=== PATIENT | female | born 1980 | race Caucasian/White ===

== ENCOUNTER 2018-11-03 16:39 | Outpatient (REF) | payer OTHER, SELFPAY ==
[2018-11-03 21:08] LABS: Abs Immature Grans 0.04 k/cumm (0.0-0.09); Absolute Basophil Count 0.04 k/cumm (0.0-0.2); Absolute Eosinophil Count 0.43 k/cumm (0.0-0.7); Absolute Monocyte Count 0.76 k/cumm (0.11-0.7); Basophils % 0.4; Eosinophils % 4.1; HGB 13.1 g/dL (12.0-15.5); Immature Grans % 0.4; Lymphocytes % 36.9; Mean Corp. HGB Concentration 32.8 g/dL (32.0-36.0); Mean Corpuscular Hemoglobin 29.8 pg (27.0-33.0); Mean Corpuscular Volume 91.1 fL (80-95); Mean Platelet Volume 10.1 fL (8.0-11.0); Monocytes % 7.2; Platelet Count 334 x1000/uL (130-400); RBC 4.39 m/cumm (4.00-5.20); RBC Distribution Width 13.2 % (11.7-14.6); White Blood Cell Count 10.57 k/cumm (4.4-10.8)
[2018-11-03 21:16] LABS: ALT 12 U/L (12-78); AST 20 U/L (15-37); Albumin 3.6 g/dL (3.4-5.0); Alkaline Phosphatase 113 U/L (46-116); Amylase 21 U/L (25-115); Anion Gap 8.1 mmol/L (3-11); BUN 7 mg/dL (7-18); Bilirubin, Total 0.1 mg/dL (0.2-1.0); CO2 30.9 mmol/L (21.0-32.0); CREATININE 0.89 mg/dL (0.55-1.02); Chloride 103 mmol/L (98-107); Glucose 77 mg/dL (70-100); Lipase 97 U/L (73-393); Potassium 3.9 mmol/L (3.5-5.1); Sodium 142 mmol/L (136-145); Total Protein 7.5 g/dL (6.4-8.2)
[2018-11-03 21:21] LABS: Calcium 8.7 mg/dL (8.5-10.1)
== END 2018-11-03 16:59 ==
LOC: NCHCN 16:39
PROVIDERS: PCP Family Medicine; Visit Provider Family Medicine
DX: R10.11 Right upper quadrant pain (principal)
CPT/HCPCS: 80053; 83690; 82150; 85025

== ENCOUNTER 2019-02-23 13:08 | Outpatient (REF) | payer OTHER, SELFPAY ==
[2019-02-23 20:26] LABS: Calculated LDL 166; Cholesterol 240 mg/dL (50-200); HDL Cholesterol 61 mg/dL (40-60); Triglyceride 69 mg/dL (30-150)
[2019-02-23 20:27] LABS: Hemoglobin A1C 5.9 % (4.5-6.2)
== END 2019-02-23 13:28 ==
LOC: NCHCN 13:08
PROVIDERS: PCP Family Medicine; Visit Provider Nurse Practitioner Family
DX: Z13.1 Encounter for screening for diabetes mellitus (principal); Z13.220 Encounter for screening for lipoid disorders
CPT/HCPCS: 80061; 83721; 83036

== ENCOUNTER 2019-05-09 22:48 | Outpatient (REF) | payer OTHER, SELFPAY ==
[2019-05-09 21:48] LABS: Abs Immature Grans 0.02 k/cumm (0.0-0.09); Absolute Basophil Count 0.03 k/cumm (0.0-0.2); Absolute Eosinophil Count 0.47 k/cumm (0.0-0.7); Absolute Lymphocyte Count 4.54 k/cumm (1.2-3.4); Absolute Monocyte Count 0.92 k/cumm (0.11-0.7); Absolute Neutrophil Count 4.47 k/cumm (1.2-6.7); Basophils % 0.3; Eosinophils % 4.5; HCT 39.9 % (36.0-46.0); HGB 13.2 g/dL (12.0-15.5); Immature Grans % 0.2; Lymphocytes % 43.4; Mean Corp. HGB Concentration 33.1 g/dL (32.0-36.0); Mean Corpuscular Hemoglobin 30.5 pg (27.0-33.0); Mean Corpuscular Volume 92.1 fL (80-95); Mean Platelet Volume 10.7 fL (8.0-11.0); Monocytes % 8.8; Neutrophils % 42.8; Platelet Count 339 x1000/uL (130-400); RBC 4.33 m/cumm (4.00-5.20); RBC Distribution Width 13.1 % (11.7-14.6); White Blood Cell Count 10.45 k/cumm (4.4-10.8)
[2019-05-09 21:58] LABS: ALT 12 U/L (12-78); AST 13 U/L (15-37); Albumin 3.8 g/dL (3.4-5.0); Alkaline Phosphatase 117 U/L (46-116); Anion Gap 6.3 mmol/L (3-11); BUN 12 mg/dL (7-18); Bilirubin, Total 0.2 mg/dL (0.2-1.0); CO2 31.7 mmol/L (21.0-32.0); CREATININE 0.74 mg/dL (0.55-1.02); Calcium 8.7 mg/dL (8.5-10.1); Chloride 103 mmol/L (98-107); Glucose 98 mg/dL (70-100); Potassium 4.1 mmol/L (3.5-5.1); Sodium 141 mmol/L (136-145); Total Protein 7.3 g/dL (6.4-8.2)
== END 2019-05-09 23:08 ==
LOC: NCHCN 22:48
PROVIDERS: PCP Family Medicine; Visit Provider Family Medicine
DX: R73.09 Other abnormal glucose (principal)
CPT/HCPCS: 80053; 85025

== ENCOUNTER 2019-07-24 15:33 | Outpatient (REF) | payer OTHER, SELFPAY ==
[2019-07-24 21:58] LABS: Hemoglobin A1C 5.9 % (4.5-6.2)
[2019-07-24 22:28] LABS: Vitamin D 25 Total 14.3 ng/ml (30-100)
[2019-07-24 22:30] LABS: ALT 15 U/L (14-59); AST 17 U/L (15-37); Albumin 3.8 g/dL (3.4-5.0); Alkaline Phosphatase 103 U/L (46-116); Anion Gap 9.7 mmol/L (3-11); BUN 9 mg/dL (7-18); Bilirubin, Total 0.3 mg/dL (0.2-1.0); CO2 28.3 mmol/L (21.0-32.0); CREATININE 0.79 mg/dL (0.55-1.02); Calcium 8.9 mg/dL (8.5-10.1); Chloride 103 mmol/L (98-107); Glucose 117 mg/dL (70-100); Potassium 4.1 mmol/L (3.5-5.1); Sodium 141 mmol/L (136-145); TSH (W/Ref FT4) 0.68 uIU/mL (0.36-3.74); Total Protein 7.2 g/dL (6.4-8.2)
== END 2019-07-24 15:53 ==
LOC: NCHCN 15:33
PROVIDERS: PCP Family Medicine; Visit Provider Family Medicine
DX: R73.03 Prediabetes (principal); R53.83 Other fatigue; J03.91 Acute recurrent tonsillitis, unspecified; E66.9 Obesity, unspecified
CPT/HCPCS: 80053; 82306; 83036; 84443

== ENCOUNTER 2019-09-26 22:15 | Outpatient (REF) | payer OTHER, SELFPAY ==
[2019-09-27 05:26] LABS: Vitamin D 25 Total 28.4 ng/ml (30-100)
== END 2019-09-26 22:35 ==
LOC: NCHCN 22:15
PROVIDERS: PCP Family Medicine; Visit Provider Family Medicine
DX: E55.9 Vitamin D deficiency, unspecified (principal)
CPT/HCPCS: 82306

== ENCOUNTER 2020-03-14 10:15 | Outpatient (CLI) | payer OTHER, SELFPAY ==
--- NOTE | 2020-03-14 09:38 | DI.RAD_ITS ---
EXAM: XR WRIST LT COMPLETE CLINICAL HISTORY: LT WRIST PAIN, INJURY, M25.532 TECHNIQUE: COMPARISON: No exams were available for comparison FINDINGS: Three views were obtained. No fracture seen. Bony alignment is within normal limits. IMPRESSION:
== END 2020-03-14 10:35 ==
PROVIDERS: PCP Family Medicine; Visit Provider Physician Assistant
DX: M25.532 Pain in left wrist (principal)
CPT/HCPCS: 73110

== ENCOUNTER 2020-04-18 07:33 | Outpatient (CLI) | payer OTHER, SELFPAY ==
[2020-04-20 00:15] LABS: COVID-19 RT-PCR Result NEGATIVE (Negative)
== END 2020-04-18 07:53 ==
PROVIDERS: PCP Family Medicine; Visit Provider Orthopaedic Surgery
DX: G56.21 Lesion of ulnar nerve, right upper limb (principal)
CPT/HCPCS: U0003

== ENCOUNTER 2020-04-21 09:34 | Day surgery (SDC) | payer OTHER, SELFPAY ==
[2020-04-21] VITALS (7 sets, daily range): BP systolic 101–116; BP diastolic 60–75; PULSE 73–89; RESP 16–23; TEMP 36.3–36.8; O2SAT 94–98
[2020-04-21] MEDS: Lactated Ringers 1,000 ML 80 ML IV (10:11)
[2020-04-21] MEDS: ceFAZolin 2 GM/50 ML BAG IVPB (11:25)
--- NOTE | 2020-04-21 12:38 | PDOC.DSDIS_ITS ---
Discharge Plan Disposition Patient Disposition: HOME Condition: Good Discharge Details Reason For Visit: ANTERIOR TRANSPOSITION R ULNAR NERVE Attending Provider: Hong Ramirez Primary Care Provider: Sabine Campbell Home Meds and New Rx's Prescriptions: New ibuprofen 600 mg tablet 600 mg PO TID Qty: 30 RF: 0 hydrocodone-acetaminophen 5-325 mg tablet 1 tab PO Q6H PRN (Reason: pain) Qty: 10 RF: 0 Continued Nexplanon 68 mg implant 1 implant SBD ONCE RF: 0 cholecalciferol (vitamin D3) 25 mcg (1,000 unit) capsule 25 mcg PO DAILY RF: 0 omeprazole 20 mg capsule,delayed release(DR/EC) 20 mg PO DAILY RF: 0 methylphenidate HCl [Concerta] 18 mg tablet extended release 24hr 18 mg PO DAILY RF: 0 buprenorphine-naloxone [Suboxone] 12-3 mg film 1 film BC Q24H RF: 0 albuterol sulfate [ProAir HFA] 90 mcg/actuation HFA aerosol inhaler 2 puff IH Q6H PRNRF: 0 sumatriptan succinate 100 mg tablet 100 mg PO PRN PRNRF: 0 citalopram 40 mg tablet 40 mg PO DAILY RF: 0 nicotine (polacrilex) [Nicorette] 4 mg gum 4 mg BC Q2H RF: 0 valacyclovir [Valtrex] 500 mg tablet 500 mg PO BID PRNRF: 0 Discharge Instructions Additional Instructions: Sling for comfort. May take R arm out of sling and move elbow as much and for as long as your discomfort allows. May discontinue sling when you feel you no longer need it for pain. Apply ice bag to inside of R elbow 4 times/day for 1 hour each time for next 3 days. Keep dressings dry and in place until return in one week. Follow up with in one week for dressing change. Take ibuprofen 3 times/day as prescribed to decrease inflammation and pain. Take hydrocodone for breakthru pain, if needed. Referrals: Hong Ramirez MD [ [facility] STAFF PHYSICIAN] - (f/u in one week) Equipment/Supplies: Sling Activity:: Activity as Tolerated Remove Dressings/Wound Care:: Do Not Remove Shower/Bathe:: Cover Diet:: As Tolerated Discharge Orders Discharge Orders: Discharge Order (Routine); Ordered 04/21/20 Ordered By: Hong Ramirez
--- NOTE | 2020-04-21 17:19 | ROE_ITS ---
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 Her symptoms are exacerbated by repetitive grasping activities with her right hand. Also awakens her at night interfering with sleep. She is a right dominant individual. Nerve conduction studies performed in March demonstrated moderate slowing of the ulnar nerve conduction across the elbow. Because of the demonstrable weakness in her right hand and some intrinsic muscle atrophy, I felt that she would most benefit from an anterior transposition of the ulnar nerve. I do not think that just cubital tunnel release will be enough to alleviate her symptoms. Risk and complication procedure explained patient detail preop. Procedure Description: Patient was taken the operating room on 04/21/2020 where she was placed supine operative table and a general anesthetic was administered. Proximal tourniquet was applied to the right upper arm and then the right e xtremity was prepped from fingers to turn again and draped free in usual sterile fashion. A long curved incision was made in line with the course the ulnar nerve. Incision began about 3 inches distal to the lateral condyle and extended about 6 inches proximal to the lateral condyle. Incision was made under tourniquet control. Subtenon's veins were cauterized. Fascia was incised just posterior to the lateral condyle and the ulnar nerve was identified. Dissection was then carried proximally freeing the ulnar nerve from overlying fascia. The nerve was then traced proximally to where it came to the intermuscular septum and into mild muscular septum was released at this point completely decompressing the nerve. Vessel loop was placed around the nerve and the vessel loop was then use as traction to aid in the dissection. The ulnar nerve was then decompressed by incising the fascia of the cubital tunnel and a fascia in the forearm muscle. The nerve was freed until the for significant motor branch distal to the elbow was identified. This was the limit of the mobilization. At this point the nerve was really quite loose with no tension on it at all. During the dissection it was noted that as the nerve and to the cubital tunnel it was somewhat flattened and there was some bluish discoloration when compared to the appearance of the nerve proximal to the lateral epicondyle. The discoloration was relieved that that her nerve was decompressed. The nerve was then irrigated with saline solution. The attachment intermuscular septum to the lateral condyle was released so there would be no tethering on the nerve. A fascial flap was then developed starting from the lateral condyle extending medially, approximately 8 inch to an inch and a half. This fascial flap was sutured to the subdermal skin with a couple of interrupted 3-0 Vicryl sutures after transposing the nerve anteriorly. I then checked to make sure that the nerve moved freely in the sling and was not tethered at all with flexion extension of the elbow. The wound was then irrigated again with saline solution. The wound margins were infiltrated with 0.5% Marcaine with epinephrine solution. A ulnar nerve block was performed with 0.5% Marcaine with epinephrine solution. The subcu was approximated interrupted 2-0 Vicryl sutures. Skin edges were approximated with skin carlos. Wounds dressed with Xeroform gauze, sterile gauze 4 x 4's ABD pads and wrapped with a 4 inch Kerlix bandage. I then wrapped the elbow with a 4 inch Moiz bandage. Right arm was placed in a sling. Her general anesthesia was reversed without complications. Tourniquet was released without any breakthrough bleeding of the dressings. Patient was discharged to recovery room in good condition. Patient was discharged home from day surgery unit when fully recovered from her general anesthesia. She is given instructions to use a sling for comfort. She may take her right arm out of the sling and flex and extend her elbow as often and for as much as discomfort allows. She may discontinue the sling completely when she does not feel she needs anymore. She should keep her dressings dry and intact until she follows up with Dr. Ramirez in 1 week. She may use her right arm as much as discomfort allows. She will take Tylenol or ibuprofen for mild pain. She is given a prescription for breakthrough pain of hydrocodone with APAP 01/19/2025 1 tab every 6 hours, PRN.
== END 2020-04-21 14:30 | disposition home or self-care (01) ==
PROVIDERS: PCP Family Medicine; Visit Provider Orthopaedic Surgery
PROC: (CPT 64718; principal; 2020-04-21 11:45)
DX: G56.21 Lesion of ulnar nerve, right upper limb (principal)
CPT/HCPCS: 64718; 81025; J0131; J0690; J1100; J1885; L3650

== ENCOUNTER 2020-07-28 14:36 | Outpatient (REF) | payer SELFPAY ==
[2020-08-02 22:11] LABS: Patient Race White; SARS-CoV-2 RNA Undetected (Undetected); SARS-CoV-2 Specimen Source Nasal
== END 2020-07-28 14:56 ==
LOC: NCHCN 14:36
PROVIDERS: PCP Family Medicine; Visit Provider Nurse Practitioner Family
DX: Z20.828 Contact with and (suspected) exposure to other viral communicable diseases (principal)
CPT/HCPCS: U0003

== ENCOUNTER 2020-08-25 20:23 | Outpatient (REF) | payer OTHER, SELFPAY ==
[2020-08-29 18:56] LABS: COVID-19 RT-PCR Result NEGATIVE (Negative)
== END 2020-08-25 20:43 ==
LOC: NCHCN 20:23
PROVIDERS: PCP Family Medicine; Visit Provider Nurse Practitioner Family
DX: Z11.59 Encounter for screening for other viral diseases (principal)
CPT/HCPCS: U0003

== ENCOUNTER 2021-07-29 15:25 | Outpatient (REF) | payer OTHER, SELFPAY ==
--- OUTSIDE RECORDS SUMMARY | 2021-07-29 15:30 | XMS_ITS ---
:1980 Author Care Team Providers Name Role Phone ROSIO POON MD Primary Care Provider [phone] JOSÉ MIGUEL LANDON MD Valet Parker [phone] Allergies Code Code System Name Reaction Severity Status Onset Effexor ? ? Active ? Medications Name Status Start Date Stop Date ? ? buspirone 5 mg tablet Completed ? 07/25/2019 Take 2 tablets 3 times a day by oral route. citalopram 40 mg tablet Active ? Not avai lable Take 1 tablet every day by oral route in the morning. Concerta 18 mg tablet,extended release Active ? Not available Take 1 tablet every day by oral route in the morning. omeprazole 20 mg capsule,delayed release Active ? Not available Take 1 capsule every day by oral route in the morning. ProAir HFA 90 mcg/actuation aerosol inhaler Active ? Not available Inhale 2 puffs every 4 hours by inhalation route as needed. Suboxone 12 mg-3 mg sublingual film Active ? Not available Place 1 film every day by sublingual route. sumatriptan 100 mg tablet Active ? Not av ailable Take 1 tablet by oral route as needed. Valtrex 500 mg tablet Active ? Not availa ble Take 1 tablet twice a day by oral route. Vitamin D2 1,250 mcg (50,000 unit) capsule Active ? Not available Take 1 capsule every week by oral route. Problems Name Status Onset Date Source ? Herpes Zoster Active ? ? Anxiety Active ? ? Opioid Abuse Active ? ? Posttraumatic Stress Disorder Active ? ? Depressive Disorder Active ? ? Attention Deficit Hyperactivity Disorder Active ? ? Gastroesophageal Reflux Disease Active ? ? Biliary Colic Active ? ? Dysmenorrhea Active ? ? Right Upper Quadrant Pain Active ? ? Recurrent Acute Tonsillitis Active ? ? Procedures Date Name Performed by ? ? [place] Teeth Extraction Information not available ? Appendectomy Information not avai lable ? Carpal Tunnel Surgery Information not av ailable Notes: bilateral, done at [facility] Results Lab Results Date Name Specimen Result Interpretation Description Value Range Status Address ? 08/02/2019 Pathology TISS - Report (see ? Final No rth Country Study below) [facility] ab (Internal) : [address] Past Encounters None recorded. Social History None recorded. Vaccine List None recorded. Plan of Care Reminders Provider Appointments None ? ? recorded. Lab None ? ? recorded. Referral None ? ? recorded. Procedures None ? ? recorded. Surgeries None ? ? recorded. Imaging None ? ? recorded. Vitals None recorded.
--- OUTSIDE RECORDS SUMMARY | 2021-07-29 15:30 | XMS_ITS | CCD ---
:1980 Author Care Team Providers Name Role Phone TATEL Attending Physician Unavailable Vital Signs Unknown or Not Available. Allergies Allergy Code Allergy Type Reaction Status No Known Drug Allergies 0 No known drug allergies Active Procedures Unknown or Not Available. History of Immunizations Unknown or Not Available. Problems Problem Code Start Date Resolved Date Status ACUTE APPENDICITIS 5409 Active Opioid type dependence, [id number] Acti ve continuous use Results Unknown or Not Available. Active Medications Medication Code Dose Units Frequency Route Modification Start Date/Time Citalopram 948108 40 MILLIGRAMS DAILY ORAL 05/10/2019 Hydrobromide 16:46 40MG Oral Tablet Prescription Detail TAKE 40 MILLIGRAMS ORAL ABRAHAM Y Omeprazole 20MG 635309 20 MILLIGRAMS DAILY ORAL 05/10 Oral Capsule, 16:46 Delayed Release Prescription Detail TAKE 20 MILLIGRAMS ORAL ABRAHAM Y SUBOXONE 0 12 MILLIGRAMS DAILY ORAL 05/10/2019 12MG-3MG 16:46 SUBLINGUAL FILM Prescription Detail TAKE 12 MILLIGRAMS ORAL ABRAHAM Y VIVITROL 380 0 1 MONTHLY INTRAMUSCULAR 05/10 MG VIAL 16:46 Prescription Detail INJECT 1 INTRAMUSCULAR MAGED HLY Medications Administered During Visit Unknown or Not Available. Encounters Encounter Diagnosis Diagnosis Code Start Date Post-traumatic headache, unspecified, not K20662 04/07/2021 intractable Social History Smoking Status Code Start Date End Date Current every day smoker [id number] 09/19/1996 Patient Decision Aids Unknown or Not Available. Discharge Instructions You were admitted to [facility] on 04/07/2021 13:34 with a principal diagnosis of Post-traumatic headache, un specified, not intractable You were discharged from [facility] on 04/07/2021 13:34 Should you have any questions prior to d ischarge, please contact a member of your healthcare team. If you have left the ho spital and have any questions, please contact your primary care physician. Chief Complaint and Reason For Visit Unknown or Not Available. Function Status Unknown or Not Available. Plan of Care Unknown or Not Available. Referral/Transition of Care Unknown or Not Available.
[2021-07-30 07:13] LABS: ALT 16 U/L (14-59); AST 23 U/L (15-37); Albumin 4.2 g/dL (3.4-5.0); Alkaline Phosphatase 93 U/L (46-116); Bilirubin, Direct 0.1 mg/dL (0.0-0.2); Bilirubin, Total 0.3 mg/dL (0.2-1.0); Total Protein 7.6 g/dL (6.4-8.2)
== END 2021-07-29 15:26 | disposition home or self-care (01) ==
LOC: NCHCN 15:25
PROVIDERS: PCP Family Medicine; Visit Provider Family Medicine
DX: Z86.59 Personal history of other mental and behavioral disorders (principal)
CPT/HCPCS: 80076

== ENCOUNTER 2021-10-13 17:42 | Outpatient (REF) | payer OTHER, SELFPAY ==
[2021-10-14 23:23] LABS: COVID-19 RT-PCR UVMMC Result Negative (Negative)
== END 2021-10-13 17:43 | disposition home or self-care (01) ==
LOC: NCHCN 17:42
PROVIDERS: PCP Family Medicine; Visit Provider Nurse Practitioner Family
DX: Z20.822 Contact with and (suspected) exposure to COVID-19 (principal); J06.9 Acute upper respiratory infection, unspecified
CPT/HCPCS: U0003

== ENCOUNTER 2022-01-12 20:50 | Outpatient (REF) | payer OTHER, SELFPAY ==
[2022-01-12 21:11] LABS: ALT 14 U/L (14-59); AST 21 U/L (15-37); Albumin 4.4 g/dL (3.4-5.0); Alkaline Phosphatase 96 U/L (46-116); Anion Gap 6.3 mmol/L (3-11); BUN 11 mg/dL (7-18); Bilirubin, Total 0.4 mg/dL (0.2-1.0); CO2 29.7 mmol/L (21.0-32.0); CREATININE 0.7 mg/dL (0.55-1.02); Calcium 9.1 mg/dL (8.5-10.1); Calculated LDL 144 mg/dL (<100); Chloride 103 mmol/L (98-107); Cholesterol 220 mg/dL (<200); Glucose 136 mg/dL (74-106); HDL Cholesterol 70 mg/dL (40-60); Potassium 4.6 mmol/L (3.5-5.1); Sodium 139 mmol/L (136-145); Total Protein 7.6 g/dL (6.4-8.2); Triglyceride 32 mg/dL (<150)
[2022-01-12 21:12] LABS: Hemoglobin A1C 5.8 % (<5.7)
== END 2022-01-12 20:51 | disposition home or self-care (01) ==
LOC: NCHCN 20:50
PROVIDERS: PCP Family Medicine; Visit Provider Family Medicine
DX: Z00.00 Encounter for general adult medical examination without abnormal findings (principal); R73.03 Prediabetes; F11.11 Opioid abuse, in remission; Z63.9 Problem related to primary support group, unspecified; Z86.59 Personal history of other mental and behavioral disorders; Z13.220 Encounter for screening for lipoid disorders
CPT/HCPCS: 80053; 80061; 83036

== ENCOUNTER 2022-07-01 15:35 | Outpatient (REF) | payer OTHER, SELFPAY ==
[2022-07-01 14:58] LABS: TSH (W/Ref FT4) 0.67 uIU/mL (0.36-3.74)
--- OUTSIDE RECORDS SUMMARY | 2022-07-01 15:38 | XMS_ITS | Encounter Summary ---
:1980 Author Organization [facility] Address [address] [place] [address] Care Team Providers Name Role Phone Sabine Poon MD Primary Care Provider Encounter Details Date Type Department Care Team Description 12/22/2017 Results Only [facility]- [facility] Sabine Poon MD [phone] [address] [place], [place] [address] (Wo rk) Social History Tobacco Use Types Packs/Day Years Used Date Never Assessed Sex Assigned at Date Recorded Not on file documented as of this encounter Plan of Treatment Not on filedocumented as of this encounter Procedures Procedure Name Priority Date/Time Associated Diagnosis Comme nts PAP TEST- RESULT Routine 12/22/2017 0:00 EDT Resu lts for this ONLY procedure are i n the results section. documented in this encounter Results PAP TEST- RESULT ONLY (12/22/2017 0:00 EDT) Pathology Report: CYTOPATHOLOGY REPORT [facility] Reports generated via electronic interface contain joshua ginal data; SERVICES however they are lacking the format of the original re port. Caution should be taken when reading/interpreting unfo rmatted reports. Name: ? ANDREA PORTER ? Accession #: ? [id number] ? : ? 1980 (Age: [age]) ??F ?Collect Date: ? 2017 ? Location: ? [facility] ? Receive Date: ? 8 ? Provider: SABINE POON MD Copy to: ? Final Report SPECIMEN ADEQUACY ? Satisfactory for Evaluation - transformation zone component absent GENERAL CATEGORIZATION ? Negative for Intraepithelial Lesion or Malignan cy ?? Last Menstrual Period: 08/2016 Treatment History: LEEP: Early 20's Specimen/Source: ??Pap Test, Cervix, ThinPrep Imaging System with manual evaluation Document reviewed and electronically signed by: ? Francisco Javier Herring, ASHER(ASCP) ? Report ??Date: 01/02/2018 09:18 HPV with Pap Test ? Date Ordered: ? 12/30/2017 ? Status: ?? Signed Out ?Date Complete: ? 01/04/2018 ? By: ??Sy stem Interface ? Date Reported: ? 01/04/2018 ? Interpretation RESULT: Negative for HPV. No E6 or E7 mRNA is detected from HPV types 16,18,31,3 3,35, 39,45,51,52,56,58,59,66, and 68 by digital media designer media tunde amplification. Comments Document reviewed and electronically signed by: ? System Interface ? Report date: 01/04/2018 By the signature above, the attending physician certif ies that he/she has personally conducted a gross and/or microscopic examin ation of the described specimens and rendered or confirmed the above diagnosi s. End of Report Specimen Performing Organization Address City/State/ZIP Code Phon e Number [facility] [address] [place] [address] SERVICES documented in this encounter Visit Diagnoses Not on filedocumented in this encounter Care Teams Property Claims Manager Relationship Specialty Start Date End Date Sabine Poon MD PCP - General 09/24/09 [address] [place] [address] documented as of this encounter
--- OUTSIDE RECORDS SUMMARY | 2022-07-01 15:38 | XMS_ITS | Encounter Summary ---
:1980 Author Organization [facility] Address [address] [place] [address] Care Team Providers Name Role Phone Sabine Campbell MD Primary Care Provider Encounter Details Date Type Department Care Team Description 09/03/2004 Results Only [facility] - [place], Provider, conversion [address] [place] [address] [place] [address] Social History Tobacco Use Types Packs/Day Years Used Date Never Assessed Sex Assigned at Date Recorded Not on file documented as of this encounter Plan of Treatment Not on filedocumented as of this encounter Procedures Procedure Name Priority Date/Time Associated Comments Diagnosis N. GONORRHOEAE Routine 09/03/2004 18:46 Results f or this AMPLIFIED PROBE EST procedure ar e in the results section. ZZCHLAMYDIA Routine 09/03/2004 18:46 Results for this TRACHOMATIS AMPLIFIED EST proced ure are in PROBE the results section. CYTOPATHOLOGY Routine 09/03/2004 0:00 Results for this EST procedure are i n the results section. documented in this encounter Results N. GONORRHOEAE AMPLIFIED PROBE (09/03/2004 18:46 EST) Result No Neisseria [facility] gonorrhoeae DNA LAB detected by crm administrator mediated amplification. Report Status Final [facility] [id number] LAB Specimen Vagina [facility] Description LAB Specimen Performing Organization Address City/State/ZIP Code Phon e Number [facility] [address] [place] [address] SERVICES [facility] [address] [place] [address] CHLAMYDIA TRACHOMATIS AMPLIFIED PROBE (09/03/2004 18:46 EST) Specimen Vagina [facility] Description LAB Result No Chlamydia [facility] trachomatis DNA LAB detected by crm administrator mediated amplification. Report Status Final [facility] [id number] LAB Specimen Performing Organization Address City/State/ZIP Code Phon e Number [facility] [address] [place] [address] SERVICES [facility] [address] [place] [address] CYTOPATHOLOGY (09/03/2004 0:00 EST) Pathology Report: CYTOPATHOLOGY REPORT [facility] Reports generated via electronic interface contain joshua ginal data; however they are lacking the format of the original re port. Caution should be taken when reading/interpreting unfo rmatted reports. Name: ? PORTER, ANDREA ? Accession #: ? [id number] : ? 1980 (Age: 24) ??F ?Collect Date: ? 08/19 Location: ? [facility] ? Receive Date : ? 09/07/2004 Provider: ?DIAN BLISS MD Copy to: ? Specimen/Source: ?ThinPrep Pap Test, Cervix/ Endocervix Last Menstrual Period: ? 08/07/04 Other: ? HPVA - HPV testing requested if ASC-US on the current ThinPrep Pap test. ? SPECIMEN ADEQUACY ? Satisfactory for Evaluation - transformation zone component absent GENERAL CATEGORIZATION ? Negative for Intraepithelial Lesion or Malignan cy INTERPRETATION ? Shift in [place] present suggestive of bacterial vaginosis. ? Document reviewed and electronically signed by: ? ASHER Linares(ASCP) ? Report Date: ??09/15/2004 10:19 End of Report Specimen Performing Organization Address City/State/ZIP Code Phon e Number [facility] [address] [place] [address] SERVICES [facility] [address] [place] [address] documented in this encounter Visit Diagnoses Not on filedocumented in this encounter Care Teams Sash Clamp Operator Relationship Specialty Start Date End Date Sabine Campbell MD PCP - General 09/24/09 [address] [place], [place] [address] documented as of this encounter
--- OUTSIDE RECORDS SUMMARY | 2022-07-01 15:38 | XMS_ITS | Encounter Summary ---
:1980 Author Organization [facility] Address [address] [place] [address] Care Team Providers Name Role Phone Sabine Campbell MD Primary Care Provider Encounter Details Date Type Department Care Team Description 09/02/2020 Lab Requisition [facility] Outr Resulting Lab, Pathology & Laboratory Provider [facility] [address] [place], [place] [address] Social History Tobacco Use Types Packs/Day Years Used Date Never Assessed Sex Assigned at Date Recorded Not on file documented as of this encounter Plan of Treatment Not on filedocumented as of this encounter Procedures Procedure Name Priority Date/Time Associated Diagnosis Comme nts COVID-19 TEST [facility] Today 09/01/2020 15:30 LAB PCR EST COVID-19 TESTING Routine 09/01/2020 15:30 Results for this EST procedure are i n the results section. documented in this encounter Results COVID-19 TEST [facility] LAB PCR (09/01/2020 15:30 EST) Specimen Swab - Entire nasopharynx (body structur e) Performing Organization Address City/State/ZIP Code Phon e Number [facility] [address] [place] [address] SERVICES COVID-19 TESTING (09/01/2020 15:30 EST) COVID-19 rt-PCR Negative Negative [facility] Result Comment: [facility] This test has not been FDA c leared or approved. This test has been authorized by FDA under an EUA for use by authorized laboratories. This test has been authorized only for detection of nucleic acid fro SERVICES m 2018-nCo, not for any oth er viruses or pathogens. This test is only authorized for the duration of the declaration that circumstances exist justifying the authorization of emergency use of in vitro d iagnostic tests for detectio n and/or diagnosis of 2019-nCoV under section 564(b)(1) of Act, 21 U.S.C ?? 360bbb-3(b) (1), unless the authorization is terminated or revoked sooner. Negative results do not prec lude 2019-nCoV infection and should not be used as the sole basis for treatment or other patient management decisions. Negative results must be combined with clinical observa tions, patient history, and epidemiological informatio n. Performed on the Celframeher Fusion instrument Performing Lab [facility] Lab [facility] SERVICES Specimen Swab Performing Organization Address City/State/ZIP Code Phon e Number [facility] [address] [place] [address] SERVICES documented in this encounter Visit Diagnoses Not on filedocumented in this encounter Care Teams Horser Up Relationship Specialty Start Date End Date Sabine Campbell MD PCP - General 09/24/[address] [place] [address] documented as of this encounter
--- OUTSIDE RECORDS SUMMARY | 2022-07-01 15:38 | XMS_ITS | Encounter Summary ---
:1980 Author Organization [facility] Address [address] [place] [address] Care Team Providers Name Role Phone Sabine Campbell MD Primary Care Provider Encounter Details Date Type Department Care Team Description 12/23/2010 Results Only [facility] Sabine Campbell MD Laboratory Services - [address] [address] [address] [facility] [place] [address] [phone] Social History Tobacco Use Types Packs/Day Years Used Date Never Assessed Sex Assigned at Date Recorded Not on file documented as of this encounter Plan of Treatment Not on filedocumented as of this encounter Procedures Procedure Name Priority Date/Time Associated Diagnosis Comme nts CYTOPATHOLOGY Routine 12/23/2010 0:00 EDT Results for this procedure are i n the results section . documented in this encounter Results CYTOPATHOLOGY (12/23/2010 0:00 EDT) Pathology Report: CYTOPATHOLOGY REPORT ? STOUT ALL EN ? LAB Reports generated via electr onic interface contain original data; ? however they are lacking the format of the original report. ? Caution should be taken when reading/interpreting unformatted reports. ? Name: ? ANDREA PORTER ? Accession #: ? [id number] ? : ? 1980 (Age: 30) ??F ?Collect Date: ? 12/23/2010 ? Location: ? [facility] ? Receive Date: ? 12/25/2010 ? Provider: ?SABINE MORG AN MD ? Copy to: ? Specimen/Source: ? Pap Test, Cervix, ThinPrep Imaging System with manual ?? evaluation ? Last Menstrual Period: ? 03/12/11 ? Treatment History: ? LEEP ? SPECIMEN ADEQUACY ? Satisfactory for Eval uation ? - transformation zone compon ent present ? GENERAL CATEGORIZATION ? Negative for Intraepi thelial Lesion or Malignancy ? INTERPRETATION ? Shift in [place] presen t suggestive of bacterial vaginosis. ? Document reviewed and electr onically signed by: ? Tyson Luis, [place] (ASCP) ? Report Date: ??04/13/ 2011 13:58 ? End of Report ? Specimen Performing Organization Address City/[facility]/ZIP Code Phon e Number [facility] [address] [place] [address] SERVICES [facility] [address] [place] [address] documented in this encounter Visit Diagnoses Not on filedocumented in this encounter Care Teams Cementer Hand Relationship Specialty Start Date End Date Sabine Campbell MD PCP - General 09/24/09 [address] [place] [address] documented as of this encounter
--- OUTSIDE RECORDS SUMMARY | 2022-07-01 15:38 | XMS_ITS | Encounter Summary ---
:1980 Author Organization [facility] Address [address] [place] [address] Care Team Providers Name Role Phone Sabine Campbell MD Primary Care Provider Encounter Details Date Type Department Care Team Description 01/21/2004 Results Only [facility] - Tiffanie [place], Provider, conversion [address] [place] [address] [place] [address] Social History Tobacco Use Types Packs/Day Years Used Date Never Assessed Sex Assigned at Date Recorded Not on file documented as of this encounter Plan of Treatment Not on filedocumented as of this encounter Procedures Procedure Name Priority Date/Time Associated Comments Diagnosis N. GONORRHOEAE Routine 01/21/2004 13:41 Results f or this AMPLIFIED PROBE EDT procedure ar e in the results section. ZZCHLAMYDIA Routine 01/21/2004 13:41 Results for this TRACHOMATIS AMPLIFIED EDT proced ure are in PROBE the results section. documented in this encounter Results N. GONORRHOEAE AMPLIFIED PROBE (01/21/2004 13:41 EDT) Result No Neisseria [facility] gonorrhoeae DNA LAB detected by rn critical care mediated amplification. Report Status Final [facility] [id number] LAB Specimen Cervix [facility] Description LAB Specimen Performing Organization Address City/State/ZIP Code Phon e Number [facility] [address] [place] [address] SERVICES [facility] [address] [place] [address] CHLAMYDIA TRACHOMATIS AMPLIFIED PROBE (01/21/2004 13:41 EDT) Specimen Cervix [facility] Description LAB Result No Chlamydia [facility] trachomatis DNA LAB detected by rn critical care mediated amplification. Report Status Final [facility] [id number] LAB Specimen Performing Organization Address City/State/ZIP Code Phon e Number [facility] [address] [place] [address] SERVICES [facility] [address] [place] [address] documented in this encounter Visit Diagnoses Not on filedocumented in this encounter Care Teams Visual Merchandising Associate Relationship Specialty Start Date End Date Sabine Campbell MD PCP - General 09/24/09 [address] [place] [address] documented as of this encounter
--- OUTSIDE RECORDS SUMMARY | 2022-07-01 15:38 | XMS_ITS | Encounter Summary ---
:1980 Author Organization [facility] Address [address] [place] [address] Care Team Providers Name Role Phone Sabine Campbell MD Primary Care Provider Encounter Details Date Type Department Care Team Description 03/05/2020 Lab Requisition [facility] Outr Resulting Lab, Pathology & Laboratory Provider [facility] [address], [place] [id number] Social History Tobacco Use Types Packs/Day Years Used Date Never Assessed Sex Assigned at Date Recorded Not on file documented as of this encounter Plan of Treatment Not on filedocumented as of this encounter Procedures Procedure Name Priority Date/Time Associated Comments Diagnosis DO NOT ORDER Today 03/05/2020 8:15 EDT Results for this STANDALONE - BROAD procedure are in COVID TEST the results section. COVID-19 TESTING Routine 03/05/2020 8:15 EDT Resu lts for this procedure are i n the results section. documented in this encounter Results DO NOT ORDER STANDALONE - BROAD COVID TEST (03/05/2020 8:15 EDT) COVID-19 rt-PCR NEGATIVE Negative [facility] Result Comment: LABORATORY 2019-novel Coronavirus (2019 -nCoV) not detected by the qRT-PCR assay. Consider testing for other respiratory viruses or re-collecting for 2019-nCoV testing. Note: Optimum timing for peak viral levels du ring infections caused by 20 -nCoV have not been determined. Collection of multiple specimens from the same patient may be necessary to detect the virus. Limitations Positive results are indicat stu of active infection with SARS-CoV-2 but do not rule out bacterial infection or co-infection with other viruses. The agent detected may not be the definite cause of diseas e. In addition, detection of viral RNA may not indicate the presence of infectious virus or that SARS-CoV-2 is the causative agent for clinical symptoms. Negative results do not prec lude SARS-CoV-2 infection and should not be used as the sole basis for patient management decisions. Negative results must be combined with clinical observations, patient his tory, and epidemiological in formation. False negative results may also occur if amplification inhibitors are present in the specimen or if inadequate numbers of organisms are present in the specimen. Op timum specimen types and jayda ing for peak viral levels during infections caused by SARS-CoV-2 have not been fully determined. Collection of multiple specimens (types and time points) from the same patient may be necessary to detect the virus. The test was validated for u se with upper respiratory specimens obtained via nasopharyngeal or oropharyngeal swabs in VTM, UTM, M4, M5, M6, saline, and MTM media. The performance of this test has not be en established for other spe cimens. Specimens collected using other FDA recommended Specimen Collection Materials listed in the FDA COVID-19 [employer] communication (December 13, 2019) are pr ocessed with the caveat that they were not all validated for use with this test and the result must be interpreted in this context. Furthermore, a false negative results may occur if a specimen is improperly collected, transported or handled. If the virus mutates in the RT-PCR target region, SARS-CoV-2 may not be detected or may be detected less predictably. Inhibitors or other types of interference may produce a false negative result. An interference study evaluating the effect of common cold medications was not performed. This test is not FDA-cleared but its performance characteristics were established by our CLIA-certified, CAP-accredited, high complexity laboratory in accordance with CLIA regulations, [employer] of [place] an Pathologists (CAP) guidel donna (Dec 06, 2019), and FDA guidance (Nov 17, 2019). This test is only for use un bailey the Food and Drug Administration's Emergency Use Authorization. Specimen Swab - Entire nasopharynx (body structur e) Performing Organization Address City/State/ZIP Code Phon e Number [facility] [place] [place] COVID-19 TESTING (03/05/2020 8:15 EDT) [facility] COVID-19 rt-PCR NEGATIVE Negative [facility] Result Comment: LABORATORY 2019-novel Coronavirus (2019 -nCoV) not detected by the qRT-PCR assay. Consider testing for other respiratory viruses or re-collecting for 2019-nCoV testing. Note: Optimum timing for peak viral levels du ring infections caused by 20 -nCoV have not been determined. Collection of multiple specimens from the same patient may be necessary to detect the virus. Limitations Positive results are indicat stu of active infection with SARS-CoV-2 but do not rule out bacterial infection or co-infection with other viruses. The agent detected may not be the definite cause of diseas e. In addition, detection of viral RNA may not indicate the presence of infectious virus or that SARS-CoV-2 is the causative agent for clinical symptoms. Negative results do not prec lude SARS-CoV-2 infection and should not be used as the sole basis for patient management decisions. Negative results must be combined with clinical observations, patient his tory, and epidemiological in formation. False negative results may also occur if amplification inhibitors are present in the specimen or if inadequate numbers of organisms are present in the specimen. Op timum specimen types and jayda ing for peak viral levels during infections caused by SARS-CoV-2 have not been fully determined. Collection of multiple specimens (types and time points) from the same patient may be necessary to detect the virus. The test was validated for u with upper respiratory specimens obtained via nasopharyngeal or oropharyngeal swabs in VTM, UTM, M4, M5, M6, saline, and MTM media. The performance of this test has not be en established for other spe cimens. Specimens collected using other FDA recommended Specimen Collection Materials listed in the FDA COVID-19 [employer] communication (December 13, 2019) are pr ocessed with the caveat that they were not all validated for use with this test and the result must be interpreted in this context. Furthermore, a false negative results may occur if a specimen is improperly collected, transported or handled. If the virus mutates in the RT-PCR target region, SARS-CoV-2 may not be detected or may be detected less predictably. Inhibitors or other types of interference may produce a false negative result. An interference study evaluating the effect of common cold medications was not performed. This test is not FDA-cleared but its performance characteristics were established by our CLIA-certified, CAP-accredited, high complexity laboratory in accordance with CLIA regulations, [employer] of [place] an Pathologists (CAP) guidel donna (Dec 06, 2019), and FDA guidance (Nov 17, 2019). This test is only for use un bailey the Food and Drug Administration's Emergency Use Authorization. Performing Lab [facility] LABORATORY SERVICES Specimen Swab Performing Organization Address City/State/ZIP Code Phon e Number [facility] [address] [place] [address] SERVICES [facility] [place], [place] documented in this encounter Visit Diagnoses Not on filedocumented in this encounter Care Teams Industrial Electrician Relationship Specialty Start Date End Date Sabine Campbell MD PCP - General 09/24/[address] [place] [address] documented as of this encounter
--- OUTSIDE RECORDS SUMMARY | 2022-07-01 15:38 | XMS_ITS | Encounter Summary ---
:1980 Author Organization [facility] Address [address] [place] [address] Care Team Providers Name Role Phone Sabine Campbell MD Primary Care Provider Encounter Details Date Type Department Care Team Description 01/21/2004 Hospital Encounter [facility] - Je Bliss MD [address] [facility] [address] [place], [place] [id number] [place] [address] Social History Tobacco Use Types Packs/Day Years Used Date Never Assessed Sex Assigned at Date Recorded Not on file documented as of this encounter Plan of Treatment Not on filedocumented as of this encounter Procedures Procedure Name Priority Date/Time Associated Diagnosis Comme [facility] CYTOPATHOLOGY Routine 01/21/2004 0:00 EDT Results for this procedure are i n the results section . documented in this encounter Results CYTOPATHOLOGY (01/21/2004 0:00 EDT) Pathology Report: CYTOPATHOLOGY REPORT [facility] Reports generated via electronic interface contain joshua ginal data; however they are lacking the format of the original re port. Caution should be taken when reading/interpreting unfo rmatted reports. Name: ? ANDREA PORTER ? Accession #: ? [id number] : ? 1980 (Age: 23) ??F ?Collect Date: ? 05/12/2003 Location: ? [facility] ? Receive Date : ? 01/22/2004 Provider: ?DIAN BLISS MD Copy to: ? Specimen/Source: ?ThinPrep Pap Test, Cervix/ Endocervix Last Menstrual Period: ? 12/07/03 Previous Gynecologic Pathology: ? LSIL: 10/22 Treatment History: ? LEEP: 12/20 Other: ? Additional clinical information: 04/21 & 08/21 wnl HPVA - HPV testing requested if ASC-US on the current ThinPrep Pap test. ? SPECIMEN ADEQUACY ? Satisfactory for Evaluation - transformation zone component present GENERAL CATEGORIZATION ? Negative for Intraepithelial Lesion or Malignan cy INTERPRETATION ? Shift in chapincito present suggestive of bacterial vaginosis. ? Document reviewed and electronically signed by: ? ASHER Edwards(ASCP) ? Report Date: ??01/27/2004 12:56 End of Report Specimen Performing Organization Address City/State/ZIP Code Phon e Number [facility] [address] [place] [address] SERVICES [facility] [address] [place] [address] documented in this encounter Visit Diagnoses Not on filedocumented in this encounter Care Teams Spray Cementer Relationship Specialty Start Date End Date Sabine Campbell MD PCP - General 09/24/09 [address] [place] [address] documented as of this encounter
--- OUTSIDE RECORDS SUMMARY | 2022-07-01 15:38 | XMS_ITS | Encounter Summary ---
:1980 Author Organization [facility] Address [address] [place] [address] Care Team Providers Name Role Phone Sabine Campbell MD Primary Care Provider Encounter Details Date Type Department Care Team Description 06/13/2004 Office Visit [facility] - Gema Ley PA-C [facility] conversion [address] [address] [address], [place] [id number] (Wo rk) Social History Tobacco Use Types Packs/Day Years Used Date Never Assessed Sex Assigned at Date Recorded Not on file documented as of this encounter Progress Notes Arianne Medina PA - 11/21/2009 1246 EST Emergency Department ??? Physician Summary Registration Date/Time 06/13/2004 14:18 Arrived- By private vehicle. Referred (self). Historian- patient. HISTORY OF PRESENT ILLNESS Chief Complaint: TREMORS and AGITATED. Wants to stop drug use. Referred for medical clearance. Wantsto enter detox program. Unknown as to when symptoms started. Duration of substance abuse- about 4 years ago Substances abused: Heroin and narcotics (about 6 hoursago, injected 4 mg Dilaudid). Has been using up to 180 mg morphine IV daily as much as I can afford She has had fever, chills, nausea, diarrhea and tremors. The patient has been agitated. No difficulty walking. The symptoms are described as mild. No injuries noted. The patient has had similar symptoms previously. REVIEW OF SYSTEMS The patient has experienced sweats (when can't get narcotics). She has not had weight loss. No headache, dizziness, chest pain, palpitations or black stools. No bloody stools, sore throat, cough, difficulty breathing or difficulty with urination. No skin abscess or joint pain. PAST HISTORY Longstanding historyof drug abuse- heroin and narcotics. Uses daily. No history of alcoholism, valvular heart disease, HIV illness or tuberculosis. Medications: See nurses notes. Allergies: See nurses notes. SOCIAL HISTORY Has place to stay. ADDITIONAL NOTES The nursing notes have been reviewed. PHYSICAL EXAM Appearance: Alert. No acute distress. Vital Signs: The vital signs have been reviewed. Head: Head atraumatic. Eyes: Pupillary exam (sluggish). Right pupil 4mm. Left pupil: 4mm. ENT: Airway intact. Moist mucous membranes. tonsils enlarged bilaterally without erythema or exudate Neck: Mildly enlarged right anterior neck nodes (nontender). CVS: Normal heart rate and rhythm. 2/6 systolic murmur. Respiratory: No respiratory distress. Breath sounds normal. Abdomen: Abdomen soft and nontender. Skin: Normal skin color. Slight diaphoresis. Extremities: small ecchymosis right antecubital space. Trackmarks on right hand, wrist, left AC. No evidence cellulitis, abscess. No splinter hemorrhages, Janeway, Osler's nodes at hands. Neuro: Alert. Oriented X 3. Speech normal. No motor deficit. No sensory deficit. PROGRESS AND PROCEDURES Patient/family counseled. ED Attending on duty and available for supervision: Trisha Dixon. Disposition: Discharged home (to [facility]). Condition: stable. Discharged home in stable condition (to [facility]). CLINICAL IMPRESSION Narcotic withdrawal. INSTRUCTIONS Go to [facility]. Warnings: GENERAL WARNINGS: Return or contact your physician immediately if your condition worsens or changes unexpectedly, if not improving as expected, or if other problems arise. Prescription Medications: Bentyl 20 mg tablets: take 1 orally every 6 hours as needed. Dispense 30. No refills. Generic substitute OK. (Clonidine transdermal 0.[address] for 5 days. Dispense 1 with 1 refill.). Diphenhydramine 25 mg capsules (available over the counter): take 1-2 orally at bedtime for 7 days, as needed for sleep. Dispense fifteen (15). No refill. Lorazepam 1 mg: take 1 orally every 6 hours as needed. Dispense thirty (30). No refill. Arianne Gatica (Electronically signed Arianne Gatica 06/14/2004 13:34) Physician's Clinical Report Addenda Registration Date: 06/13/2004 06/13/2004 14:19 TCALL FROM [facility]. PT USES IV OPIATES. PLEASE CALL THEM WHEN SHE IS READY TO LEAVE. signed Helen Gold - 06/13/2004 14:19) Emergency Department ??? Nursing Summary Registration Date/Time 06/13/2004 14:18 TRIAGE Initial Assessment Triage time 14:Jun 13 2004 Acuity: LEVEL 5. BP: 134 / 81 sitting HR: 105 RR: 18 Temp: 35.5 (tympanic). Alert. No acute distress. --14:25 Isha Christianson R.N. Medications None. --14:25 Isha Christianson R.N. Allergies No known drug allergies. --14:25 Isha Christianson R.N. History Chief Complaint: (detox). Pain levelnow: 0/10. (clearance for [facility], IVDU, last use this am 0900). No treatment prior to arrival. PAST HX: Negative. Arrived by private vehicle. Historian: patient. --14:25 Isha Christianson R.N. NURSING PROGRESS NOTES Progress (PA has assessed pt.). --15:19 Odilia Manuel R.N. DISPOSITION / DISCHARGE Condition at departure: unchanged. No barriers to learning present. Discharge instructions reviewed with the patient and family. Reviewed medication; prescription (s) given to the patient (to be filledby [facility] staff). Patient and family verbalized understanding. The patient was discharged ([facility]). The patient left the Emergency Department ambulatory and via private vehicle. --15:20 Jonh Paredes R.N. R.N. Locked/Released at 06/13/2004 15:20 by Odilia Manuel R.N. documented in this encounter Plan of Treatment Not on filedocumented as of this encounter Visit Diagnoses Not on filedocumented in this encounter Care Teams Territory Manager Relationship Specialty Start Date End Date Sabine Campbell MD PCP - General 09/24/[address] [place] [address] documented as of this encounter
--- OUTSIDE RECORDS SUMMARY | 2022-07-01 15:38 | XMS_ITS | Encounter Summary ---
:1980 Author Organization [facility] Address [address] [place] [address] Care Team Providers Name Role Phone Sabine Campbell MD Primary Care Provider Encounter Details Date Type Department Care Team Description 10/14/2021 Lab Requisition [facility] Outr Resulting Lab, Pathology & Laboratory Provider [facility] [address], [place] [id number] Social History Tobacco Use Types Packs/Day Years Used Date Never Assessed Sex Assigned at Date Recorded Not on file documented as of this encounter Plan of Treatment Not on filedocumented as of this encounter Procedures Procedure Name Priority Date/Time Associated Diagnosis Comme nts COVID-19 TEST [facility] Today 10/13/2021 13:15 LAB PCR EST COVID-19 TESTING Routine 10/13/2021 13:15 Results for this EST procedure are i n the results section. documented in this encounter Results COVID-19 TEST [facility] LAB PCR (10/13/2021 13:15 EST) Specimen Swab Performing Organization Address City/State/ZIP Code Phon e Number [facility] [address] [place] [address] SERVICES COVID-19 TESTING (10/13/2021 13:15 EST) COVID-19 rt-PCR Negative Negative [facility] Result Comment: CENTER LABORATORY This [...] and epidemiological informatio n. Performed on the Proenza Schouerher Fusion instrument Performing Lab [place] [facility] Lab [facility] SERVICES Specimen Swab Performing Organization Address City/State/ZIP Code Phon e Number [facility] [address] [place] [address] SERVICES documented in this encounter Visit Diagnoses Not on filedocumented in this encounter Care Teams Calciner Operator Relationship Specialty Start Date End Date Sabine Campbell MD PCP - General 09/24/09 [address] [place] [address] documented as of this encounter
--- OUTSIDE RECORDS SUMMARY | 2022-07-01 15:38 | XMS_ITS | Encounter Summary ---
:1980 Author Organization [facility] Address [address] [place] [address] Care Team Providers Name Role Phone Sabine Campbell MD Primary Care Provider Encounter Details Date Type Department Care Team Description 08/26/2020 Lab Requisition [facility] Outr Resulting Lab, Pathology & Laboratory Provider [facility] [address] [place], [place] [id number] Social History Tobacco Use Types Packs/Day Years Used Date Never Assessed Sex Assigned at Date Recorded Not on file documented as of this encounter Plan of Treatment Not on filedocumented as of this encounter Procedures Procedure Name Priority Date/Time Associated Comments Diagnosis DO NOT ORDER Today 08/25/2020 15:00 Results for this STANDALONE - BROAD EST procedure are in COVID TEST the results section. COVID-19 TESTING Routine 08/25/2020 15:00 Results for this EST procedure are i n the results section. documented in this encounter Results DO NOT ORDER STANDALONE - BROAD COVID TEST (08/25/2020 15:00 EST) COVID-19 rt-PCR NEGATIVE Negative [facility] Result Comment: LABORATORY 2019-novel Coronavirus [...] Organization Address City/State/ZIP Code Phon e Number [facility] [place] [place] COVID-19 TESTING (08/25/2020 15:00 EST) COVID-19 rt-PCR NEGATIVE Negative [facility] Result Comment: LABORATORY 2019-novel Coronavirus (2019 [...] in accordance with CLIA regulations, [employer] [facility] an Pathologists (CAP) guidel donna (Dec 06, 2019), and FDA guidance (Nov 17, 2019). This test is only for use un bailey the Food and Drug Administration's Emergency Use Authorization. Performing Lab [facility] LABORATORY SERVICES Specimen Swab Performing Organization Address City/State/ZIP Code Phon e Number [facility] [address] [place] [address] SERVICES [facility] [place], [place] documented in this encounter Visit Diagnoses Not on filedocumented in this encounter Care Teams Green Building Materials Designer Relationship Specialty Start Date End Date Sabine Campbell MD PCP - General 09/24/09 [address] [place], [place] [id number] documented as of this encounter
--- OUTSIDE RECORDS SUMMARY | 2022-07-01 15:38 | XMS_ITS | Encounter Summary ---
:1980 Author Organization [facility] Address [address] [place] [address] Care Team Providers Name Role Phone Sabine Campbell MD Primary Care Provider Encounter Details Date Type Department Care Team Description 04/23/2003 Hospital Encounter [facility] - Je Bliss MD [address] [facility] [address] [place], [place] [id number] [place] [address] Social History Tobacco Use Types Packs/Day Years Used Date Never Assessed Sex Assigned at Date Recorded Not on file documented as of this encounter Plan of Treatment Not on filedocumented as of this encounter Procedures Procedure Name Priority Date/Time Associated Diagnosis Comme [facility] CYTOPATHOLOGY Routine 04/23/2003 0:00 EDT Results for this procedure are i n the results section . documented in this encounter Results CYTOPATHOLOGY (04/23/2003 0:00 EDT) Pathology Report: CYTOPATHOLOGY REPORT [facility] Reports generated via electronic interface contain joshua ginal data; however they are lacking the format of the original re port. Caution should be taken when reading/interpreting unfo rmatted reports. Name: ? ANDREA PORTER ? Accession #: ? [id number] : ? 1980 (Age: 23) ??F ?Collect Date: ? 01/2003 Location: ? [facility] ? Receive Date : ? 04/25/2003 Provider: ?DIAN BLISS MD Copy to: ? Specimen/Source: ?ThinPrep Pap Test, Cervix/ Endocervix Last Menstrual Period: ? 09/21 Previous Gynecologic Pathology: ? LSIL: 10/22 Treatment History: ? LEEP: 12/20 Other: ? HPVA - HPV testing requested if ASC-US on the current ThinPrep Pap test. ? SPECIMEN ADEQUACY ? Satisfactory for Evaluation - transformation zone component present GENERAL CATEGORIZATION ? Negative for Intraepithelial Lesion or Malignan cy ? Document reviewed and electronically signed by: ? ASHER Moscoso(ASCP) ? Report Date: ??05/01/2003 09:07 End of Report Specimen Performing Organization Address City/State/ZIP Code Phon e Number [facility] [address] [place] [address] SERVICES [facility] [address] [place] [address] documented in this encounter Visit Diagnoses Not on filedocumented in this encounter Care Teams Roll Cutting Operator Relationship Specialty Start Date End Date Sabine Campbell MD PCP - General 09/24/[address] [place], [place] [address] documented as of this encounter
--- OUTSIDE RECORDS SUMMARY | 2022-07-01 15:38 | XMS_ITS | Encounter Summary ---
:1980 Author Organization Address [address] [place] [address] Care Team Providers Name Role Phone Sabine Campbell MD Primary Care Provider Encounter Details Date Type Department Care Team Description 08/27/2003 Hospital Encounter [facility] - Je Bliss MD 111 [facility] [address] [place], [place] [id number] [place] [address] Social History Tobacco Use Types Packs/Day Years Used Date Never Assessed Sex Assigned at Date Recorded Not on file documented as of this encounter Plan of Treatment Not on filedocumented as of this encounter Procedures Procedure Name Priority Date/Time Associated Diagnosis Comme nts CYTOPATHOLOGY Routine 08/27/2003 0:00 EST Results for this procedure are i n the results section . documented in this encounter Results CYTOPATHOLOGY (08/27/2003 0:00 EST) Pathology Report: CYTOPATHOLOGY REPORT [facility] Reports generated via electronic interface contain joshua ginal data; however they are lacking the format of the original re port. Caution should be taken when reading/interpreting unfo rmatted reports. Name: ? ANDREA PORTER ? Accession #: ? [id number] : ? 1980 (Age: 23) ??F ?Collect Date: ? 1205/2003 Location: ? [facility] ? Receive Date : ? 08/29/2003 Provider: ?DIAN BLISS MD Copy to: ? Specimen/Source: ?ThinPrep Pap Test, Cervix/ Endocervix Last Menstrual Period: ? 09/21 Previous Gynecologic Pathology: ? HSIL: 12/20 Treatment History: ? LEEP: 12/20 Other: ? Additional clinical information: Pap of 04/21 WNL HPVA - HPV testing requested if ASC-US on the current ThinPrep Pap test. ? SPECIMEN ADEQUACY ? Satisfactory for Evaluation - transformation zone component present GENERAL CATEGORIZATION ? Negative for Intraepithelial Lesion or Malignan cy INTERPRETATION ? Shift in [place] present suggestive of bacterial vaginosis. ? Document reviewed and electronically signed by: ? ASHER Joseph(ASCP) ? Report Date: ??09/03/2003 07:31 End of Report Specimen Performing Organization Address City/State/ZIP Code Phon e Number [facility] [address] [place] [address] [facility] [address] [place] [address] documented in this encounter Visit Diagnoses Not on filedocumented in this encounter Care Teams Diversity Intern Relationship Specialty Start Date End Date Sabine Campbell MD PCP - General 09/24/09 [address] [place] [address] documented as of this encounter
--- OUTSIDE RECORDS SUMMARY | 2022-07-01 15:38 | XMS_ITS | Encounter Summary ---
:[address] [facility] Address [address] [place] [address] Care Team Providers Name Role Phone Sabine Poon MD Primary Care Provider Encounter Details Date Type Department Care Team Description 05/09/2015 Results Only [facility] Sabine Poon MD [phone] [address] [place], [place] [address] (Wo rk) Social History Tobacco Use Types Packs/Day Years Used Date Never Assessed Sex Assigned at Date Recorded Not on file documented as of this encounter Plan of Treatment Not on filedocumented as of this encounter Procedures Procedure Name Priority Date/Time Associated Diagnosis Comme nts PAP TEST- RESULT Routine 05/09/2015 0:00 EDT Resu lts for this ONLY procedure are i n the results section. documented in this encounter Results PAP TEST- RESULT ONLY (05/09/2015 0:00 EDT) Pathology Report: CYTOPATHOLOGY REPORT [facility] Reports generated via electronic interface contain joshua ginal data; SERVICES however they are lacking the format of the original re port. Caution should be taken when reading/interpreting unfo rmatted reports. Name: ? ANDREA PORTER ? Accession #: ? [id number] : ? 1980 (Age: [age]) ??F ?Collect Date: ? 05/09 Location: ? [facility] ? Receive Date : ? 05/13/2015 Provider: ?SABINE POON MD Copy to: ? Specimen/Source: ? Pap Test, Cervix/Endocervix, ThinPrep Imaging System with manual evaluation Last Menstrual Period: ? Treatment History: ? LEEP: S/P ? SPECIMEN ADEQUACY ? Satisfactory for Evaluation - transformation zone component absent GENERAL CATEGORIZATION ? Negative for Intraepithelial Lesion or Malignan cy INTERPRETATION ? Shift in [place] present suggestive of bacterial vaginosis. ? Document reviewed and electronically signed by: ? ASHER Stewart(ASCP) ? Report Date: ??05/16/2015 13:04 End of Report Specimen Performing Organization Address City/State/ZIP Code Phon e Number [facility] [address] [place] [address] SERVICES documented in this encounter Visit Diagnoses Not on filedocumented in this encounter Care Teams Tablet Repair Relationship Specialty Start Date End Date Sabine Poon MD PCP - General 09/24/[address] [place] [address] documented as of this encounter
--- OUTSIDE RECORDS SUMMARY | 2022-07-01 15:38 | XMS_ITS | Clinical Summary ---
:1980 Author Organization [facility] Address [address] [place] [address] Care Team Providers Name Role Phone Sabine Campbell MD Primary Care Provider Social History Tobacco Use Types Packs/Day Years Used Date Never Assessed Sex Assigned at Date Recorded Not on file Plan of Treatment Not on file Insurance Payer Benefit Plan Subscriber ID Effective Phone Address Typ e / Group Dates [employer] INS [employer] INS [id number] 2019-Pre [phone] [employer] sent [phone] [place] [address] (Work) Lashaun Melchor Personal/Family Self 1980 [address] (Home) [place] [phone] (Work) Lashaun Melchor Personal/Family Self 1980 [address] (Home) [place] [phone] (Work) Lashaun Melchor Personal/Family Self 1980 [address] (Home) [place] [phone] (Work) Lashaun Melchor Personal/Family Self 1980 [address] (Home) [place] [phone] (Work) Care Teams Electric Power Line Repairer Relationship Specialty Start Date End Date Sabine Campbell MD PCP - General 09/24/09 [address] [place] [address]
--- OUTSIDE RECORDS SUMMARY | 2022-07-01 15:38 | XMS_ITS | Encounter Summary ---
:1980 Author Organization [facility] Address [address] [place] [address] Care Team Providers Name Role Phone Unavailable Primary Care Provider Unavailable Encounter Details Date Type Department Care Team Description 03/16/2002 Hospital Encounter [facility] - Shelli Tena MD [address] [place], [place] [address] [place] [address] [id number] [phone] Social History Tobacco Use Types Packs/Day Years Used Date Never Assessed Sex Assigned at Date Recorded Not on file documented as of this encounter Discharge Disposition Disposition Code Departure Means Destination Auto Discharge documented in this encounter Plan of Treatment Not on filedocumented as of this encounter Procedures Procedure Name Priority Date/Time Associated Diagnosis Comme nts MR UPPER EXTREM JT Routine 03/16/2002 16:13 Resul ts for this W/CONTRAST EDT procedure are i n the results section. FL GUIDE LOCATION, Routine 03/16/2002 15:32 Resul ts for this ASPIRATION, EDT procedure are i n INJECTION, BIOPSY the result s section. documented in this encounter Results MR UPPER EXTREM JT W/CONTRAST (03/16/2002 16:13 EDT) Anatomical Region Laterality Modality Other Specimen Impressions [facility] - 07/02/2009 2: 42 EDT IMPRESSION: 1. Small subacromial-subdeltoid bursitis . 2. Tiny articular-sided partial tear of the distal supraspinatus tendon with imbibition of contrast with probable superimposed distal supraspinatus tendinosis. dw Narrative [facility] - 07/02/2009 2: 42 EDT PERSISTENT RIGHT SHOULDER PAIN R/O RTC VS SLAP LESION MRI SCAN OF THE RIGHT SHOULDER WITH CONT RAST: 03/16/02 TECHNIQUE: T1, fat-suppressed T1, FSE T1 weighted c oronal oblique and T1 weighted axial and sagittal sequences were perfor med following an arthrogram utilizing a dilute gadolinium solution. FINDINGS: The AC joint is unremarkable. A small am ount of fluid is present in the subacromial-subdeltoid space consist ent with bursitis. There is minimal imbibition of contrast into the articular aspect and intrasubstance of the distal supraspinat us tendon suggestive of minimal articular-sided partial tear. No focal tendon disruption is identified, however. Swelling within the distal supraspinatus tendon likely indicates superimposed tendinosis . The infraspinatus tendon, subscapularis and teres minor tendons ar e intact. The glenoid labrum and biceps tendon are intact. No muscle atrophy is appreciated. Procedure Note David Altamirano MD - 07/02/2009 PERSISTENT RIGHT SHOULDER PAIN R/O RTC VS SLAP LESION MRI SCAN OF THE RIGHT SHOULDER WITH CONT RAST: 03/16/02 TECHNIQUE: T1, fat-suppressed T1, FSE T1 weighted c oronal oblique and T1 weighted axial and sagittal sequences were perfor med following an arthrogram utilizing a dilute gadolinium solution. FINDINGS: The AC joint is unremarkable. A small am ount of fluid is present in the subacromial-subdeltoid space consist ent with bursitis. There is minimal imbibition of contrast into the articular aspect and intrasubstance of the distal supraspinat us tendon suggestive of minimal articular-sided partial tear. No focal tendon disruption is identified, however. Swelling within the distal supraspinatus tendon likely indicates superimposed tendinosis . The infraspinatus tendon, subscapularis and teres minor tendons ar e intact. The glenoid labrum and biceps tendon are intact. No muscle atrophy is appreciated. IMPRESSION IMPRESSION: 1. Small subacromial-subdeltoid bursitis . 2. Tiny articular-sided partial tear of the distal supraspinatus tendon with imbibition of contrast with probable superimposed distal supraspinatus tendinosis. Performing Organization Address City/State/ZIP Code Phon e Number [facility] [address] [facility] [address] [facility] [address] [place], [place] [address] FL GUIDE LOCATION, ASPIRATION, INJECTION, BIOPSY (03/16/2002 15:32 EDT) Anatomical Region Laterality Modality Other Specimen Narrative [facility] - 07/02/2009 2: 42 EDT PERSISTENT RIGHT SHOULDER PAIN R/O RTC VS SLAP LESION RIGHT SHOULDER ARTHROGRAM PRE-MRI TECHNIQUE: The procedure and its risks w ere discussed with the patient and oral and written consent was obtained. In a supine position, the shoulder was prepped and d raped in sterile fashion and local anesthesia was provided with 1% li docaine. The glenohumeral joint was entered under fluoroscopic con trol with a 20 gauge spinal needle and approximately 15 cc of a dilu te solution of gadolinium, sterile saline, Hypaque-60, 1% lidocaine and trace amounts of epinephrine (1:1000) were administered. FINDINGS: No partial or full thickness c uff tear is seen. The patient tolerated the procedure well and MRI is to follow. D 03/19/02 T 03/20/02 /azeem Procedure Note David Altamirano MD - 07/02/2009 PERSISTENT RIGHT SHOULDER PAIN R/O RTC VS SLAP LESION RIGHT SHOULDER ARTHROGRAM PRE-MRI TECHNIQUE: The procedure and its risks w ere discussed with the patient and oral and written consent was obtained. In a supine position, the shoulder was prepped and d raped in sterile fashion and local anesthesia was provided with 1% li docaine. The glenohumeral joint was entered under fluoroscopic con trol with a 20 gauge spinal needle and approximately 15 cc of a dilu te solution of gadolinium, sterile saline, Hypaque-60, 1% lidocaine and trace amounts of epinephrine (1:1000) were administered. FINDINGS: No partial or full thickness c uff tear is seen. The patient tolerated the procedure well and MRI is to follow. D 03/19/02 T 03/20/02 /azeem Performing Organization Address City/State/ZIP Code Phon e Number [facility] [address] [facility] [address] [facility] [address] [place], [place] [address] documented in this encounter Visit Diagnoses Not on filedocumented in this encounter
--- OUTSIDE RECORDS SUMMARY | 2022-07-01 15:38 | XMS_ITS | CCD ---
:1980 Author Care Team Providers Name Role Phone VICKY BOWMAN Attending Physician Unavailable ALICIA RUSSELL Er Physician 1 Unavailable MOE Rodriguez Registered Nurse Unavailable Vital Signs Vital Sign Value Unit Date/Time Recent/Initial? BMI (Body Mass Index) 24.96 kg/m^2 04/29/2022 08:01 In itial VS Weight Measured 150 lbs 04/29/2022 08:01 Initial VS Height 65 in 04/29/2022 08:01 Initial VS BSA (Body Surface Area) 1.77 m^2 04/29/2022 08:01 Initial VS BP Systolic 155 mmHg 04/29/2022 08:01 Initial VS BP Diastolic 111 mmHg 04/29/2022 08:01 Initial VS Respiratory Rate 18 bpm 04/29/2022 08:01 Initial VS Heart Rate 66 bpm 04/29/2022 08:01 Initial VS O2 % BldC Oximetry 99 % 04/29/2022 08:01 Initi al VS Body Temperature 36.7 degrees 04/29/2022 08:01 Initial VS Allergies Allergy Code Allergy Type Reaction Status No Known Drug Allergies 0 No known drug allergies Active Procedures Unknown or Not Available. History of Immunizations Unknown or Not Available. Problems Problem Code Start Date Resolved Date Status ACUTE APPENDICITIS 5409 Active Opioid type dependence, continuous use [id number] Active Results COMPREHENSIVE METABOLIC PANEL (CMP) - Co llect Date/Time: 04/29/2022 08:25 Test Name Code Test Result Test Units Test Ref Range GLUCOSE 2345-7 140 mg/dL L=70 H=116 BUN 3094-0 13 mg/dL L=6 H=25 CREATININE 2160-0 0.78 mg/dL L=0.51 H=0.95 SODIUM SERUM 2951-2 140 mmol/L L=136 H=145 POTASSIUM SERUM 2823-3 3.9 mmol/L L=3.4 H=5.2 CHLORIDE SERUM 2075-0 103 mmol/L L=96 H=110 CARBON DIOXIDE (CO2) 8-9 32 mmol/L L=22 H= 34 ANION GAP 84910-5 4.9 mmol/L CALCIUM SERUM 29538-6 8.9 mg/dL L=8.2 H=10.2 BILIRUBIN TOTAL 1975-2 0.5 mg/dL L=0.0 H=1.3 ALK. PHOS. 6768-6 100 U/L L=46 H=116 SGOT (AST) 1920-8 16 U/L L=15 H=37 SGPT (ALT) 1742-6 12 U/L L=12 H=78 TOTAL PROTEIN 2885-2 7.6 gm/dL L=6.0 H=8.0 ALBUMIN 1751-7 3.8 gm/dL L=3.4 H=5.0 AGE 42 years eGFR (non-Afr.Amer.) 26520-5 82 mL/min eGFR (Afr-Rwandan) 52237-0 99 mL/min LIPASE* - Collect Date/Time: 04/29/2022 08:25 Test Name Code Test Result Test Units Test Ref Range LIPASE 52 U/L L=73 H=393 CBC W/ DIFFERENTIAL* - Collect Date/Time : 04/29/2022 08:25 Test Name Code Test Result Test Units Test Ref Range WBC 6690-2 11.07 th/cmm L=5.00 H=10.00 NEUT % 60.6 % L=40.0 H=80.0 LYMPH % 28.2 % L=10.0 H=50.0 MONO % 13976-3 6.6 % L=2.0 H=12.0 EOS % 3.7 % L=0.0 H=8.0 BASO % 0.5 % L=0.0 H=3.0 IG % 2514-8 0.4 % L=0.0 H=1.1 NRBC % 91864-9 0.0 % L=0.0 H=0.0 NEUT abs count 751-8 6.7 th/cmm L=1.6 H=8.4 LYMPH abs count 731-0 3.1 th/cmm L=1.5 H=4.0 MONO abs count 742-7 0.7 th/cmm L=0.2 H=1.0 EOS abs count 711-2 0.4 th/cmm L=0.0 H=0.5 BASO abs count 704-7 0.1 th/cmm L=0.0 H=0.2 IG abs count 51171-2 0.0 th/cmm L=0.0 H=0.1 NRBC abs count 44325-8 0.0 mil/cmm L=0.0 H=0.0 RBC 789-8 4.65 mil/cmm L=3.90 H=5.40 HEMOGLOBIN 718-7 14.0 gm/dL L=12.0 H=16.0 HEMATOCRIT 4544-3 43 % L=37 H=47 MCV 787-2 92 fL L=82 H=92 MCH 785-6 30.1 pg L=27.0 H=31.0 MCHC 786-4 32.8 % L=32.0 H=36.0 RDW-SD 788-0 43.0 fL L=39.0 H=49.0 PLATELET COUNT 777-3 362 th/cmm L=150 H=450 URINALYSIS WITH REFLEX CULT IF POSITIVE* - Collect Date/Time: 04/29/2022 09:50 Test Name Code Test Result Test Units Test Ref Range COLLECTION MODE: 27739-5 CLEAN CATCH N/A Color 5778-6 YELLOW N/A yellow Appearance 5767-9 CLEAR N/A clear Glucose urine 99594-8 NEGATIVE N/A negative mg/dl Bilirubin 5770-3 NEGATIVE N/A negative Ketones 2514-8 TRACE N/A negative mg/dl Spec gravity 5811-5 1.020 N/A 1.003 - 1.030 pH urine 2756-5 7.5 N/A 5.0 - 7.0 Protein 71972-3 NEGATIVE N/A negative mg/dl Urobilinogen 45481-2 0.2 N/A <or= 1 EU/dl Nitrite. 5802-4 NEGATIVE N/A negative Blood 5794-3 MODERATE N/A negative Leukocytes. NEGATIVE N/A negative MICROSCOPIC INDICATED N/A WBCs. 22591-8 none N/A 0-5 / hpf RBCs 77277-2 10-25 N/A 0-5 / hpf Epith cells 32235-6 none N/A 0-5 / hpf Crystals none N/A none Bacteria moderate N/A none Mucus 8247-9 none N/A none Casts 07335-1 none N/A none /lpf TEST (URINE) QUALITATIVE - Col lect Date/Time: 04/29/2022 09:50 Test Name Code Test Result Test Units Test Ref Range TEST 2106-3 NEGATIVE N/A Active Medications Medication Code Dose Units Frequency Route Modification Start Date/Time MiraLAX 717440 17 GRAM DAILY ORAL 04/29/2022 17GM/1Dose Oral 11:54 Powder for Solution Prescription Detail TAKE 17 GRAM ORAL DAILY Citalopram Hydrobromide 800269 40 MILLIGRAMS DAILY ORAL 05/10/2019 16:46 40MG Oral Tablet Prescription Detail TAKE 40 MILLIGRAMS ORAL ABRAHAM Y Omeprazole 20MG Oral 705026 20 MILLIGRAMS DAILY ORAL 05/10/2019 16:46 Capsule, Delayed Release Prescription Detail TAKE 20 MILLIGRAMS ORAL ABRAHAM Y SUBOXONE 12MG-3MG SUBLINGUAL 0 12 MILLIGRAMS DAILY ORAL 05/10/2019 16:46 FILM Prescription Detail TAKE 12 MILLIGRAMS ORAL ABRAHAM Y VIVITROL 380 MG VIAL 0 1 MONTHLY INTRAMUSCULAR 05/10/2019 16:46 Prescription Detail INJECT 1 INTRAMUSCULAR MONTH LY Medications Administered During Visit Medication Dose Units Frequency Route Date/Time of L ast Dose ACETAMINOPHEN INJ IVPB: 1000 MG X1 IVPB 0 04/29/2022 08:39 1000MG/100ML KETOROLAC INJ SDV: 30MG/1ML 15 MG X1 IVP 04/29/2022 08:39 FLEET ENEMA 133ML 133 ML X1 NE 022 09:10 BUPRENORPHINE SL TABLET: 2MG 2 MG X1 SL 04/29/2022 08:38 ONDANSETRON INJ SDV: 4MG/2ML 4 MG X1 IVP 04/29/2022 08:40 Encounters Encounter Diagnosis Diagnosis Code Start Date Generalized abdominal pain R1084 04/29/2022 Social History Smoking Status Code Start Date End Date Current every day smoker [id number] 09/19/1996 Patient Decision Aids Unknown or Not Available. Discharge Instructions You were admitted to [facility] on 04/29/2022 07:48 with a principal diagnosis of Generalized abdominal pain You had the following tests done: PREGN WAGNER TEST (URINE) QUALITATIVE URINALYSIS WITH REFLEX CULT IF POSITIVE* CBC W/ DIFFEREN TIAL* COMPREHENSIVE METABOLIC PANEL (CMP) LIPASE* You were discharged from [facility] on 04/29/2022 12:22 Should you have any questions prior to d ischarge, please contact a member of your healthcare team. If you have left the ho spital and have any questions, please contact your primary care physician. Chief Complaint and Reason For Visit Chief Complaint Date of Onset RIGHT SIDED PAIN Function Status Unknown or Not Available. Plan of Care Unknown or Not Available. Referral/Transition of Care Unknown or Not Available.
--- OUTSIDE RECORDS SUMMARY | 2022-07-01 15:38 | XMS_ITS | Encounter Summary ---
:1980 Author Organization [facility] Address [address] [place] [address] Care Team Providers Name Role Phone Sabine Campbell MD Primary Care Provider Encounter Details Date Type Department Care Team Description 04/18/2020 Lab Requisition [facility] Outr Resulting Lab, Pathology & Laboratory Provider [facility] [address] [place], [place] [id number] Social History Tobacco Use Types Packs/Day Years Used Date Never Assessed Sex Assigned at Date Recorded Not on file documented as of this encounter Plan of Treatment Not on filedocumented as of this encounter Procedures Procedure Name Priority Date/Time Associated Comments Diagnosis DO NOT ORDER Today 04/18/2020 11:08 Results for this STANDALONE - BROAD EDT procedure are in COVID TEST the results section. COVID-19 TESTING Routine 04/18/2020 11:08 Results for this EDT procedure are i n the results section. documented in this encounter Results DO NOT ORDER STANDALONE - BROAD COVID TEST (04/18/2020 11:08 EDT) COVID-19 rt-PCR NEGATIVE Negative [facility] Result Comment: LABORATORY 2019-novel Coronavirus (2019 [...] Address City/State/ZIP Code Phon e Number [facility] [place], [place] COVID-19 TESTING (04/18/2020 11:08 EDT) Pathologist [facility] COVID-19 rt-PCR NEGATIVE Negative [facility] Result Comment: LABORATORY 2019-novel Coronavirus (2019 [...] Administration's Emergency Use Authorization. Performing Lab [facility]ORATORY SERVICES Specimen Swab Performing Organization Address City/State/ZIP Code Phon e Number [facility] [address] [place] [address] SERVICES [facility] [place], [place] documented in this encounter Visit Diagnoses Not on filedocumented in this encounter Care Teams Customs Appraiser Relationship Specialty Start Date End Date Sabine Campbell MD PCP - General 09/24/[address] [place], [place] [address] documented as of this encounter
--- OUTSIDE RECORDS SUMMARY | 2022-07-01 15:38 | XMS_ITS | Encounter Summary ---
:1980 Author Organization [facility] Address [address] [place] [address] Care Team Providers Name Role Phone Sabine Campbell MD Primary Care Provider Encounter Details Date Type Department Care Team Description 09/16/2004 Results Only [facility] - T[place]anie [place], Provider, conversion [address] [place] [address] [place] [address] Social History Tobacco Use Types Packs/Day Years Used Date Never Assessed Sex Assigned at Date Recorded Not on file documented as of this encounter Plan of Treatment Not on filedocumented as of this encounter Procedures Procedure Name Priority Date/Time Associated Diagnosis Comme nts HEP A,B,C PROFILE Routine 09/16/2004 16:05 Result s for this EST procedure are i n the results section. documented in this encounter Results HEPATITIS A,B,C PROFILE- [facility] USE ONLY (09/16/2004 16:05 EST) Pathologist Sig nature Hepatitis B Surface Ag Neg [facility] Hepatitis B Surface Ab Neg [facility] Hep B Core Ab Neg [facility] Hep A Antibody Neg [facility] Hepatitis C Ab Neg [facility] Specimen Performing Organization Address City/State/ZIP Code Phon e Number [facility] [address] [place] [address] SERVICES [facility] [address] [place] [address] documented in this encounter Visit Diagnoses Not on filedocumented in this encounter Care Teams Party Plan Demonstrator Relationship Specialty Start Date End Date Sabine Campbell MD PCP - General 09/24/09 [address] [place] [address] documented as of this encounter
--- OUTSIDE RECORDS SUMMARY | 2022-07-01 15:38 | XMS_ITS | Encounter Summary ---
:1980 Author Organization [facility] Address [address] [place] [address] Care Team Providers Name Role Phone Unavailable Primary Care Provider Unavailable Encounter Details Date Type Department Care Team Description 06/13/2004 Hospital Encounter [facility] Emergency, Emergency Department - [place] [address] [place], [place] [id number] Social History Tobacco Use Types Packs/Day Years Used Date Never Assessed Sex Assigned at Date Recorded Not on file documented as of this encounter Discharge Disposition Disposition Code Departure Means Destination [facility] documented in this encounter Plan of Treatment Pending Results Name Type Priority Associated Diagnoses Date/Ti me CYTOPATHOLOGY Pathology Routine 09/15/2009 0:0 0 EST CYTOPATHOLOGY Pathology Routine 09/15/2009 0:0 0 EST Scheduled Orders Name Type Priority Associated Diagnoses Order S chedule CYTOPATHOLOGY Pathology Routine For medication s that can be administered at any time during the hospitaliza tion for visit such as immuniz ations. for 1 Occurrences sta rting 09/17/2009 CYTOPATHOLOGY Pathology Routine For medication s that can be administered at any time during the hospitaliza tion for visit such as immuniz ations. for 1 Occurrences sta rting 09/17/2009 documented as of this encounter Procedures Procedure Name Priority Date/Time Associated Diagnosis Comme nts CYTOPATHOLOGY Routine 09/15/2009 0:00 EST Results for this procedure are i n the results section . documented in this encounter Results CYTOPATHOLOGY (09/15/2009 0:00 EST) Pathology Report: CYTOPATHOLOGY REPORT ? [facility] ? LAB Reports generated via electr onic interface contain original data; ? however they are lacking the format of the original report. ? Caution should be taken when reading/interpreting unformatted reports. ? Name: ? CHARLOTTE, ANDREA ? Accession #: ? [id number] ? : ? 1980 (Age: 29) ??F ?Collect Date: ? 09/15/2009 ? Location: ? [facility] ? Receive Date: ? 09/17/2009 ? Provider: ?ROSIO MORG AN MD ? Copy to: ? Specimen/Source: ? Pap Test, Cervix/Endocervix, ThinPrep Imaging System ? with manual evaluation ? Last Menstrual Period: ? last wk. ? Treatment History: ? LEEP ? SPECIMEN ADEQUACY ? Satisfactory for Eval uation ? - transformation zone compon ent present ? GENERAL CATEGORIZATION ? Epithelial Cell Abnor mality ? INTERPRETATION ? Squamous Cell Abnorma lity - Atypical squamous cells, undetermined ? significance (ASC-US). ? Shift in [place] present sugge stive of bacterial vaginosis. ? EDUCATIONAL NOTES/RECOMMENDA TIONS ? FORMERLY [facility] recommends follo wing the 2006 Consensus Guidelines for the Management of Women with Abnormal Cervi lory Cancer Screening Tests (JLGTD, ? 2007;11(4):201-222). ??Conse nsus guidelines are available online at ? www.ASCCP.org. ? Document reviewed and electr onically signed by: ? Bharati C. Mills, MD ? Report Date: ??01/05/ 2010 20:16 ? End of Report ? Specimen Performing Organization Address City/State/ZIP Code Phon e Number [facility] [address] [place] [address] SERVICES [facility] [address] [place] [address] documented in this encounter Visit Diagnoses Not on filedocumented in this encounter
--- OUTSIDE RECORDS SUMMARY | 2022-07-01 15:38 | XMS_ITS | Encounter Summary ---
:1980 Author Organization [facility] Address [address] [place] [address] Care Team Providers Name Role Phone Sabine Campbell MD Primary Care Provider Encounter Details Date Type Department Care Team Description 08/02/2019 Lab Requisition [facility] Yannick Bauer MD Encounter for other Pathology & [address] general examination Laboratory Medicine - [facility] [id number] [address] [facility] [phone] [place] [address] (Work) [phone] Social History Tobacco Use Types Packs/Day Years Used Date Never Assessed Sex Assigned at Date Recorded Not on file documented as of this encounter Plan of Treatment Not on filedocumented as of this encounter Procedures Procedure Name Priority Date/Time Associated Diagnosis Comme nts SURGICAL PATHOLOGY Today 08/02/2019 11:15 Resul ts for this EST procedure are i n the results section. documented in this encounter Results SURGICAL PATHOLOGY (08/02/2019 11:15 EST) Final Diagnosis A. TONSIL, LEFT, TONSILECTOMY: [facility] Electronically - Tonsil with reactive follicular hyperplasia. CENTER signed by Sarah LABORATORY Mer Sterling MD on B. TONSIL, RIGHT, TONSILECTOMY: SERVICES 08/06/2019 at 1253 - Tonsil with reactive follicular hyperplasia. Clinical History Chronic tonsillitis [facility] Attestation By the signature [facility] Electronica lly below, the attending CENTER signed by Sarah physician certifies LABORATORY Mer Sterling MD on that they have SERVICES 08/06/2019 at 1253 personally conducted a gross and/or microscopic examination of the described specimens and rendered or confirmed the above diagnosis. Gross Description A. Received in formalin labe lled with proper patient identification (initials S, S) and left tonsil is a palatine tonsil (3.2 x 2.2 x 0.7 cm). The mucosa is smooth and glistening with prominent crypts [facility] . Serial sections reveal lob ular homogeneous tissue without abnormality. A outside sales representative section is submitted in A1.. CENTER LABORATORY B. Received in formalin labe lled with proper patient identification (initials S, S) and right tonsil is a palatine tonsil (3.1 x 1.8 x 1.5 cm). The mucosa is smooth and glistening with prominent crypt SERVICES s. Serial sections reveal lo bular homogeneous tissue without abnormality. A outside sales representative section is submitted in B1. 08/03/2019 09:54 Scanned Images [facility] Specimen Tissue - Specimen from tonsil (specimen) Tissue specimen (specimen) - Specimen fr om tonsil (specimen) Performing Organization Address City/State/ZIP Code Phon e Number [facility] [address] [place] [address] SERVICES documented in this encounter Visit Diagnoses Diagnosis Encounter for other general examination documented in this encounter Care Teams Candy Cooker Helper Relationship Specialty Start Date End Date Sabine Campbell MD PCP - General 09/24/[address] [place] [address] documented as of this encounter
--- OUTSIDE RECORDS SUMMARY | 2022-07-01 15:39 | XMS_ITS | CCD ---
:1980 Author Care Team Providers Name Role Phone BERTIN GALINDO Attending Physician Unavailable Vital Signs Unknown or Not Available. Allergies Allergy Code Allergy Type Reaction Status No Known Drug Allergies 0 No known drug allergies Active Procedures Unknown or Not Available. History of Immunizations Unknown or Not Available. Problems Problem Code Start Date Resolved Date Status ACUTE APPENDICITIS 5409 Active Opioid type dependence, continuous use [id number] Active Results Unknown or Not Available. Active Medications Medication Code Dose Units Frequency Route Modification Start Date/Time MiraLAX 375151 17 GRAM DAILY ORAL 04/29/2022 17GM/1Dose Oral 11:54 Powder for Solution Prescription Detail TAKE 17 GRAM ORAL DAILY Citalopram Hydrobromide 541843 40 MILLIGRAMS DAILY ORAL 05/10/2019 16:46 40MG Oral Tablet Prescription Detail TAKE 40 MILLIGRAMS ORAL ABRAHAM Y Omeprazole 20MG Oral 141107 20 MILLIGRAMS DAILY ORAL 05/10/2019 16:46 Capsule, Delayed Release Prescription Detail TAKE 20 MILLIGRAMS ORAL ABRAHAM Y SUBOXONE 12MG-3MG SUBLINGUAL 0 12 MILLIGRAMS DAILY ORAL 05/10/2019 16:46 FILM Prescription Detail TAKE 12 MILLIGRAMS ORAL ABRAHAM Y VIVITROL 380 MG VIAL 0 1 MONTHLY INTRAMUSCULAR 05/10/2019 16:46 Prescription Detail INJECT 1 INTRAMUSCULAR MONTH LY Medications Administered During Visit Unknown or Not Available. Encounters Encounter Diagnosis Diagnosis Code Start Date Post-traumatic headache, unspecified, not intractable [id number] 04/07/2021 Social History Smoking Status Code Start Date End Date Current every day smoker [id number] 09/19/1996 Patient Decision Aids Unknown or Not Available. Discharge Instructions You were admitted to [facility] on 04/07/2021 13:34 with a principal diagnosis of Post-traumatic headache, un specified, not intractable You were discharged from [facility] on 04/07/2021 13:34 Should you have any questions prior to d ischarge, please contact a member of your healthcare team. If you have left the spital and have any questions, please contact your primary care physician. Chief Complaint and Reason For Visit Unknown or Not Available. Function Status Unknown or Not Available. Plan of Care Unknown or Not Available. Referral/Transition of Care Unknown or Not Available.
== END 2022-07-01 15:36 | disposition home or self-care (01) ==
LOC: NCHCN 15:35
PROVIDERS: PCP Family Medicine; Visit Provider Family Medicine
DX: R63.4 Abnormal weight loss (principal)
CPT/HCPCS: 84443

== ENCOUNTER 2022-12-28 13:43 | Outpatient (REF) | payer BC, SELFPAY ==
[2022-12-28 14:47] LABS: HCT 39.2 % (36.0-46.0); HGB 12.7 g/dL (11.2-15.7); MCH 30.2 pg (27.0-33.0); MCHC 32.4 % (32.0-36.0); MCV 93 fL (80-95); MPV 10.5 fL (8.0-11.0); Platelet Count 300 10^3/uL (130-400); RBC 4.21 10^6/uL (3.93-5.22); RDW 13.1 % (11.7-14.6); RDW-SD 44.9 fL; WBC 7.46 10^3/uL (4.4-10.8)
[2022-12-28 16:41] LABS: Hemoglobin A1C 5.6 % (<5.7)
[2022-12-28 19:24] LABS: ALT 12 U/L (14-59); AST 18 U/L (15-37); Albumin 3.9 g/dL (3.4-5.0); Alkaline Phosphatase 78 U/L (46-116); Bilirubin, Direct 0.1 mg/dL (0.0-0.2); Bilirubin, Total 0.3 mg/dL (0.2-1.0); Total Protein 7.4 g/dL (6.4-8.2)
== END 2022-12-28 13:44 | disposition home or self-care (01) ==
LOC: NCHCN 13:43
PROVIDERS: PCP Family Medicine; Visit Provider Family Medicine
DX: R63.4 Abnormal weight loss (principal); R73.03 Prediabetes; Z86.59 Personal history of other mental and behavioral disorders
CPT/HCPCS: 80076; 85027; 83036

== ENCOUNTER 2023-05-03 15:21 | Outpatient (REF) | payer BC, SELFPAY ==
--- NOTE | 2023-05-03 13:50 | PAPFT_PTH ---
PATIENT: Lashaun Melchor LOC: [facility]#:[id number] AGE/SX: 43/F ROOM: RE05/03/[address]: Sabine Campbell : 1980 BED: DIS: 05/03/2023 SPEC #: [id number] RECD: 05/04/23 10:03 STATUS: TELLY TOLLIVER #: [id number] DEBBIE: 05/03/23 13:[address]: Sabine Campbell DEPT: [facility] Cytology RECD BY: Jennifer Moss Tissues: 1 - CX/ENDOCX FOR PAP SMEARS Procedures: PAP THIN PREP/[facility] Screening HPV DNA PROBE Comments: [id number]
== END 2023-05-03 15:22 | disposition home or self-care (01) ==
LOC: NCHCN 15:21
PROVIDERS: PCP Family Medicine; Visit Provider Family Medicine
DX: Z12.4 Encounter for screening for malignant neoplasm of cervix (principal); Z11.51 Encounter for screening for human papillomavirus (HPV); Z00.00 Encounter for general adult medical examination without abnormal findings
CPT/HCPCS: 88142; 87624

== ENCOUNTER 2023-07-07 14:06 | Outpatient (REF) | payer BC, SELFPAY ==
[2023-07-07 21:11] LABS: ALT 13 U/L (14-59); AST 24 U/L (15-37); Alkaline Phosphatase 88 U/L (46-116); Bilirubin, Total 0.3 mg/dL (0.2-1.0); Total Protein 7.6 g/dL (6.4-8.2)
[2023-07-07 21:12] LABS: Bilirubin, Direct < 0.1 mg/dL (0.0-0.2)
== END 2023-07-07 14:07 | disposition home or self-care (01) ==
LOC: NCHCN 14:06
PROVIDERS: PCP Family Medicine; Visit Provider Family Medicine
DX: Z86.59 Personal history of other mental and behavioral disorders (principal)
CPT/HCPCS: 80076

== ENCOUNTER 2024-04-10 15:43 | Outpatient (REF) | payer BC, SELFPAY ==
[2024-04-10 21:55] LABS: ALT 13 U/L (14-59); AST 21 U/L (15-37); Albumin 3.9 g/dL (3.4-5.0); Alkaline Phosphatase 91 U/L (46-116); BUN 11 mg/dL (7-18); Bilirubin, Total 0.43 mg/dL (0.2-1.0); CREATININE 0.8 mg/dL (0.55-1.02); Calcium 8.9 mg/dL (8.5-10.1); Chloride 104 mmol/L (98-107); Estimated GFR 94.28 (mL/min/1.73m2); Glucose 107 mg/dL (74-106); Potassium 4.3 mmol/L (3.5-5.1); Sodium 142 mmol/L (136-145); Total Protein 7.4 g/dL (6.4-8.2)
== END 2024-04-10 15:44 | disposition home or self-care (01) ==
LOC: NCHCN 15:43
PROVIDERS: PCP Family Medicine; Visit Provider Family Medicine
DX: F11.21 Opioid dependence, in remission (principal)
CPT/HCPCS: 80053

== ENCOUNTER 2024-07-02 19:24 | Outpatient (REF) | payer BC, SELFPAY | END 2024-07-02 19:25 | disposition home or self-care (01) | LOC: NCHCN 19:24 | PROVIDERS: PCP Family Medicine; Visit Provider Nurse Practitioner Family | DX: L01.00 Impetigo, unspecified (principal); B95.0 Streptococcus, group A, as the cause of diseases classified elsewhere | CPT/HCPCS: 87077; 87070; 87205 ==

== ENCOUNTER 2024-09-14 11:33 | Outpatient (REF) | payer BC, SELFPAY ==
[2024-09-14 14:37] LABS: HCT 40.4 % (36.0-46.0); HGB 12.8 g/dL (11.2-15.7); MCH 29.7 pg (27.0-33.0); MCHC 31.7 % (32.0-36.0); MCV 94 fL (80-95); MPV 10.9 fL (8.0-11.0); Platelet Count 224 10^3/uL (130-400); RBC 4.31 10^6/uL (3.93-5.22); RDW 12.7 % (11.7-14.6); RDW-SD 44.1 fL; WBC 5.99 10^3/uL (4.4-10.8)
[2024-09-14 14:55] LABS: ALT 7 U/L (14-59); AST 21 U/L (15-37); Albumin 3.5 g/dL (3.4-5.0); Alkaline Phosphatase 88 U/L (46-116); Anion Gap 3.7 mmol/L (3-11); BUN 7 mg/dL (7-18); Bilirubin, Total 0.21 mg/dL (0.2-1.0); CO2 32.3 mmol/L (21.0-32.0); CREATININE 0.8 mg/dL (0.55-1.02); Calcium 8.8 mg/dL (8.5-10.1); Chloride 107 mmol/L (98-107); Estimated GFR 94.28 (mL/min/1.73m2); Glucose 103 mg/dL (74-106); Potassium 4.5 mmol/L (3.5-5.1); Sodium 143 mmol/L (136-145); TSH (W/Ref FT4) 0.86 uIU/mL (0.36-3.74)
[2024-09-14 15:39] LABS: Absolute Eosinophil Count 0.42 10^3/uL (0.0-0.7); Absolute Lymphocyte Count 2.94 10^3/uL (1.2-3.4); Absolute Monocyte Count 0.72 10^3/uL (0.1-0.8); Absolute Neutrophil Count 1.86 10^3/uL (1.2-6.7); Atypical Lymphocytes % 5 %
[2024-09-14 15:40] LABS: Absolute Basophil Count 0.06 10^3/uL (0.0-0.2); Diff Comment Manual Differential; RBC Morphology Normal
== END 2024-09-14 11:34 | disposition home or self-care (01) ==
LOC: NCHCN 11:33
PROVIDERS: PCP Family Medicine; Visit Provider Family Medicine
DX: R63.4 Abnormal weight loss (principal); F11.21 Opioid dependence, in remission
CPT/HCPCS: 80053; 84443; 85025

== ENCOUNTER 2025-04-17 11:44 | Outpatient (REF) | payer OTHER, SELFPAY ==
[2025-04-17 15:14] LABS: ALT 14 U/L (14-59); AST 27 U/L (15-37); Albumin 4.2 g/dL (3.4-5.0); Alkaline Phosphatase 104 U/L (46-116); Anion Gap 3.0 mmol/L (3-11); BUN 9 mg/dL (7-18); Bilirubin, Total 0.4 mg/dL (0.2-1.0); CO2 34.0 mmol/L (21.0-32.0); Calcium 9.1 mg/dL (8.5-10.1); Chloride 103 mmol/L (98-107); Estimated GFR 114.15 (mL/min/1.73m2); Glucose 120 mg/dL (74-106); Potassium 4.1 mmol/L (3.5-5.1); Sodium 140 mmol/L (136-145); TSH (W/Ref FT4) 1.17 uIU/mL (0.36-3.74); Total Protein 7.8 g/dL (6.4-8.2)
== END 2025-04-17 11:45 | disposition home or self-care (01) ==
LOC: NCHCN 11:44
PROVIDERS: PCP Family Medicine; Visit Provider Family Medicine
DX: Z51.81 Encounter for therapeutic drug level monitoring (principal)
CPT/HCPCS: 80053; 84443